=== PATIENT | female | born 1955 ===

== ENCOUNTER 2017-07-11 15:57 | Outpatient (CLI) | payer OTHER ==
[2017-07-12] MEDS ORDERED: PERCOCET 5-3251 EACH PO (08:42)
[2017-07-12] MEDS ORDERED: RECTICARE30 GM RECTAL (08:42)
[2017-07-12] MEDS ORDERED: MIRALAX510 GM PO (08:42)
== END 2017-07-11 16:05 | disposition home or self-care (01) ==
LOC: LAB 15:57
DX: I11.9 Hypertensive heart disease without heart failure (principal); E11.9 Type 2 diabetes mellitus without complications

== ENCOUNTER 2017-07-12 06:22 | Day surgery (SDC) | payer OTHER ==
[2017-07-12] MEDS ORDERED: RECTICARE30 GM RECTAL (08:42)
[2017-07-12] MEDS ORDERED: MIRALAX510 GM PO (08:42)
[2017-07-12] MEDS ORDERED: PERCOCET 5-3251 EACH PO (08:42)
== END 2017-07-12 15:10 | disposition home or self-care (01) ==
LOC: CIR.AMB 06:22
DX: K64.8 Other hemorrhoids (principal); K64.4 Residual hemorrhoidal skin tags; K64.3 Fourth degree hemorrhoids